=== PATIENT | male | born 1950 | race Caucasian/White ===

== ENCOUNTER 2021-07-12 06:14 | Emergency (ER) | payer MEDICARE, OTHER, SELFPAY ==
--- NOTE | ~2021-07-12 | CT_ITS ---
EXAMINATION: CT brain wo con EXAM DATE: 07/12/2021 08:00 INDICATION: Dizziness . Mild headache. TECHNIQUE: Spiral CT of the head was performed without contrast. Axial, coronal and sagittal images were reviewed. The dose-length product (DLP) for this examination was 681.00 mGy-cm. The exposure w as tailored according to patient size, and iterative reconstruction (ASIR) was used as additional dos e reduction technique. There is no prior study for comparison. FINDINGS: Large amount of subarachnoid hemorrhage filling the basilar cisterns, quadrigeminal plate c istern, prepontine cisterns and extending along the sylvian fissures and paramedian frontal subarachn oid spaces. Distribution and appearance most likely indicates rupture of an aneurysm around the circl e of [place]. I discussed this finding with Michael Terry MD at 07/12/2021 08:04 CDT. I recommende d emergent neurosurgical evaluation. There is no obstructive hydrocephalus, brain mass or extra-axia l collection. Sinuses are well aerated. IMPRESSION: Large amount of subarachnoid hemorrhage in the cisterns extending along sylvian fissures and also inferiorly. 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 Reviewed, dictated and finalized at location B. IMPRESSION: Large amount of subarachnoid hemorrhage in the cisterns extending along sylvian fissures and also inferiorly. Distribution suggests ruptured aneu rysm as most likely source.
--- NOTE | ~2021-07-12 | XR_ITS ---
EXAMINATION: XR chest 2V DATE: 07/12/2021 06:47 INDICATION: Weakness. TECHNIQUE: Frontal and lateral views of the chest were obtained. COMPARISON: None. FINDINGS: The chest demonstrates clear lungs without pneumonia, pleural effusion, or pneumothorax. Th e heart size is normal. IMPRESSION: 1. No acute cardiopulmonary disease. Reviewed, dictated and finalized at location A.
[2021-07-12 06:16] VITALS: BP 153/87; RESP 16; TEMP 36.4; O2SAT 99
--- NOTE | 2021-07-12 06:25 | ECG_ITS ---
Measurements Intervals [place] Rate: 74 P: 51 ME: 196 QRS: 1 QRSD: 108 T: 0 QT: 397 QTc: 441 Interpretive Statements SINUS RHYTHM DELAYED PRECORDIAL R/S TRANSITION OONSIDER INFERIOR INFARCT, AGE INDETERMINATE BASELINE ARTIFACT- II, III, AVR, AVF, V1, V3-V6 ABNORMAL ECG Electronically Signed On 07-12-2021 6:43:32 CDT by Declan Ly D.O.
[2021-07-12 06:44] LABS: Basophils Absolute Auto 0.1 K/mm3 (0.0-0.1); Basophils Percent Auto 0.7 % (0.2-1.2); Eosinophils Absolute Auto 0.2 K/mm3 (0-0.3); Eosinophils Percent Auto 2.4 % (0-4.4); Hematocrit 49.9 % (42.0-52.0); Hemoglobin 16.7 g/dL (14.0-18.0); Immature Granulocyte Absolute 0.03 K/mm3 (0.00-0.031); Immature Granulocyte Percent A 0.4 % (0-0.5); Lymphocytes Absolute Auto 1.54 K/mm3 (0.9-3.2); Lymphocytes Percent Auto 18.2 % (18.3-44.2); Mean Corpuscular HGB Conc 33.5 g/dl (32-36); Mean Corpuscular Hemoglobin 29.8 pg (26-34); Mean Corpuscular Volume 89.1 fl (80-100); Mean Platelet Volume 10.1 fl (7.4-10.4); Monocytes Absolute Auto 0.5 K/mm3 (0.1-0.6); Monocytes Percent Auto 5.4 % (2.6-8.5); Neutrophils Absolute Auto 6.2 K/mm3 (1.3-6.7); Neutrophils Percent Auto 72.9 % (45.5-73.1); Platelet Count Result 178 k/mm3 (150-375); Red Cell Distribution Width 12.9 % (11.5-14.5); White Blood Count 8.5 K/mm3 (4.5-10.0)
[2021-07-12 06:55] LABS: Alanine Aminotransferase 18 U/L (4-50); Albumin Level 4.2 g/dL (3.5-5.1); Alkaline Phosphatase 56 U/L (38-126); Anion Gap 11 mmol/L (8-16); Aspartate Amino Transferase 28 U/L (17-59); Bilirubin,Total 0.6 mg/dL (0.2-1.3); Blood Urea Nitrogen 27 mg/dL (9-20); Calcium 9.3 mg/dL (8.4-10.2); Carbon Dioxide 22 mmol/L (22-30); Chloride 109 mmol/L (98-107); Estimated CRCL calculation 65 ml/min; Estimated Glomerular Filt Rate > 60; Glucose 158 mg/dL (65-110); Potassium 3.8 mmol/L (3.4-5.0); Sodium 142 mmol/L (137-145)
[2021-07-12 07:27] VITALS: BP 130/91; PULSE 70; RESP 20; O2SAT 98
--- NOTE | 2021-07-12 07:45 | ED.WEAKNESS ---
HPI - Weakness General Chief complaint: Weakness <Mihcael Terry MD - Last Filed: 07/12/21 07:48> Stated complaint: headache, cant walk <Michael Terry MD - Last Filed: 07/12/21 07:48> Time Seen by Provider: 07/12/21 07:37 <Michael Terry MD - Last Filed: 07/12/21 07:48> Source: patient <Michael Terry MD - Last Filed: 07/12/21 07:48> Mode of arrival: EMS <Michael Terry MD - Last Filed: 07/12/21 07:48> Limitations: no limitations <Michael Terry MD - Last Filed: 07/12/21 07:48> History of Present Illness HPI Narrative: Patient is a 71-year-old male complaining of bilateral lower extremity weakness that started around 430 this morning and now resolved. Patient also complained of a headache, frontal dull, 6 out of 10 that also started this morning. Patient denies dizziness, speech or visual disturbance, numbness, chest pain, shortness of breath, abdominal pain, nausea, vomiting, diarrhea, urinary symptoms, fever or chills. Patient was able to get out of his wheelchair and walk to the bathroom here in the emergency room, states that he is back to his baseline strength. <Michael Terry MD - Last Filed: 07/12/21 07:48> Related Data Home medications: Home Medications Medication Instructions Recorded Confirmed bimatoprost 1 drp EACH EYE DAILY 07/12/21 bimatoprost [Lumigan] 1 drp EACH EYE DAILY 07/12/21 <Michael Terry MD - Last Filed: 07/12/21 07:48> Allergies/Adverse reactions: Allergies Allergy/AdvReac Type Severity Reaction Status Date / Time No Known Allergies Allergy Verified 07/12/21 07:29 <Michael Terry MD - Last Filed: 07/12/21 07:48> Review of Systems Review of Systems: All systems reviewed & are unremarkable except as noted in HPI and below <Michael Terry MD - Last Filed: 07/12/21 07:48> Constitutional: Constitutional: Denies body ache(s), Denies chills, Denies excessive sweating, Denies fatigue, Denies fever(s), Denies headache(s), Denies lethargy, Denies malaise and Denies weight loss <Michael Terry MD - Last Filed: 07/12/21 07:48> Eyes: Eyes: Denies blurry vision, Denies change in vision and Denies loss of vision <Michael Terry MD - Last Filed: 07/12/21 07:48> ENT: Denies dizziness, Denies ear discharge, Denies headache(s), Denies lip swelling, Denies epistaxis, Denies nasal congestion, Denies neck pain, Denies throat swelling and Denies tongue swelling <Michael Terry MD - Last Filed: 07/12/21 07:48> Cardiovascular: Cardiovascular: Denies chest pain, Denies chest pain at rest, Denies chest pain with activity, Denies diaphoresis, Denies rapid heart rate, Denies edema, Denies irregular heart rhythm, Denies lightheadedness, Denies palpitations, Denies dyspnea and Denies dyspnea on exertion <Michael Trery MD - Last Filed: 07/12/21 07:48> Respiratory: Respiratory: Denies chest congestion, Denies cough, Denies hemoptysis, Denies dyspnea and Denies dyspnea on exertion <Michael Terry MD - Last Filed: 07/12/21 07:48> Gastrointestinal: Gastrointestinal: Denies abdominal pain, Denies melena, Denies hematochezia, Denies diarrhea, Denies nausea, Denies vomiting and Denies hematemesis <Michael Terry MD - Last Filed: 07/12/21 07:48> Musculoskeletal: Musculoskeletal: Denies abnormal gait, Denies deformity, Denies joint swelling, Denies limited range of motion, Denies neck pain and Denies numbness <Michael Terry MD - Last Filed: 07/12/21 07:48> Neurologic: Denies Abnormal speech present, Denies abnormal gait, Denies confusion, Denies dizziness, Denies focal weakness, Denies loss of vision, Denies numbness, Denies Other visual disturbances and Denies Sensory deficit (Neuro) <Michael Terry MD - Last Filed: 07/12/21 07:48> Psychiatric: Psychiatric: Denies confusion, Denies depression, Denies auditory hallucinations, Denies homicidal ideation and Denies suicidal ideation <Michael Sanchez
[2021-07-12 08:08] LABS: Troponin I < 0.012 ng/mL (0.000-0.034)
[2021-07-12 08:09] VITALS: BP 130/84; PULSE 84; RESP 20; O2SAT 100
[2021-07-12] MEDS: PROMETHAZINE HCL 25 MG/ML AMPUL 12.5 MG IV PUSH (08:19)
--- NOTE | 2021-07-12 08:27 | PC.NURSE ---
0827-REPORT CALLED TO VIJAYA ARGUETA AT [facility] ER. DR. HOLLIS IS ACCEPTING ED PHYSICIAN AT [facility].
[2021-07-12 09:01] VITALS: BP 129/72; PULSE 78; RESP 14; O2SAT 98
== END 2021-07-12 09:46 | disposition short-term general hospital (02) ==
PROVIDERS: Emergency Medicine; Emergency Provider Emergency Medicine
DX: I60.9 Nontraumatic subarachnoid hemorrhage, unspecified (principal)
CPT/HCPCS: 36415; 70450; 71046; 80053; 84484; 85025; 93005; 96374; 96375; 99285; J0131; J2550

== ENCOUNTER 2025-03-09 14:54 | Emergency (ER) | payer MEDICARE, OTHER, SELFPAY ==
--- NOTE | ~2025-03-09 | CT_ITS ---
CLINICAL INDICATION: Fall, low back and hip pain. COMPARISON: None. TECHNIQUE: Computed tomography (CT) of the pelvis was performed without intravenous contrast. The dos e-length product was 843.02 mGy-cm. FINDINGS/OBSERVATIONS: Diffuse bony demineralization is identified. No acute or subacute fracture is appreciated. Significant degenerative disease is identified within the bilateral femoral acetabular joint spaces a s well as within the pubic symphysis, with sclerosis and joint space narrowing. IMPRESSION: Degenerative disease, without acute fracture, as detailed above. Reviewed, dictated and finalized at location A.
--- NOTE | ~2025-03-09 | XR_ITS ---
XR knee LT min 4V Ordering provider: Deneen Reynolds PA-C History: . left knee pain, injury . Comparison: None. FINDINGS: BONES: No acute fracture or dislocation. JOINT SPACES: Normal. Chondrocalcinosis. SOFT TISSUES: Normal. IMPRESSION: No acute osseous abnormality left knee. Chondrocalcinosis. Reviewed, dictated and finalized at location A.
--- OUTSIDE RECORDS SUMMARY | 2025-03-09 14:57 | XMS_ITS | Referral Summary ---
Author Organization [facility] Address [address] [place] [address] Care Team Providers Care Lumber Scaler Name Role Phone Alejandro Helms MD Primary Care Provider + Encounters Date Type Department Care Team Description 03/09/2025 Nurse Triage [address] [phone] Alejandro Helms MD 02/18/2025 Nurse [address] [address] Alejandro Helms MD 02/18/[address] [address] Alejandro Helms MD Appointment Request from Last 3 Months Allergies No known active allergies Medications LUMIGAN 0.01 % ophthalmic drops 7 Active aspirin 81 mg enteric coated tablet Take 1 tablet (81 mg total) by mouth daily 30 tablet 11 2 Active lisinopriL (PRINIVIL,ZESTR IL) 10 mg tablet TAKE 1 TABLET(10 MG) BY MOUTH DAILY 30 tablet 3 Active timolol (TIMOPTIC) 0.5 % ophthalmic solution Administer 1 drop into both eyes 2 (two) times a day 4 Active triamcinolone (KENALOG) 0.1 % cream Apply topically 2 (two) times a day 30 g 1 4 Active tamsulosin (FLOMAX) 0.4 mg extended release capsule Take 1 capsule (0.4 mg total) by mouth daily 100 capsule 1 4 Active Active Problems Problem Noted Date Diagnosed Date Diverticulosis of colon 11/06/2023 Screen for colon cancer 04/09/2023 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 He 'manages' but does get butterflies in stomach with this. Home readings with BP higher in the morning around 150s/90s and then when relaxed at home, systolic will get into 110s/60-70s-home machine correlating. Denies chest pain, dyspnea but has skipped beat at times, last time was months ago-reports he had discussed this in the past and was told benign EKG today with NSR, good wave progression Will check labs Will try controlling stress more right now with buspar, consider propranolol once daily in the AM if no improvement but worry more with borderline HR and with evening BP being on the lower side for now Will call in one week with symptom update and BP readings Gastroesophageal reflux disease without esophagi tis 12/18/2016 Overview (01/26/2017): GERD without esophagitis Hyperlipidemia 12/18/2016 Overview (01/26/2017): Hyperlipidemia, unspecified hyperlipidemia type Assessment & Plan (12/07/2020 8:52 AM OPERATIONS LEAD): Discussed diet and exercise today, will check labs Benign prostatic hyperplasia 12/06/2012 Overview (01/26/2017): BPH (benign prostatic hypertrophy) Assessment & Plan (12/07/2020 8:51 AM OPERATIONS LEAD): Stable off meds, will monitor Low back pain 12/06/2012 Overview (01/26/2017): Intermittent low back pain Resolved Problems Problem Noted Date Diagnosed Date Resolved Date UTI symptoms 09/06/2021 02/28/2022 BMI 35.0-35.9,adult 08/07/2018 12/11/19 19 Assessment & Plan (08/07/2018 9:24 AM CDT): BMI Follow-up includes: nutrition counseling and exercise counseling.' Early satiety 10/24/2017 02/28/2022 Assessment & Plan (10/24/2017 9:27 AM OPERATIONS LEAD): 1. Upper endoscopy Medicare annual wellness visit, subsequent 10/24/2017 09/06/2022 Assessment & Plan (12/09/2020 1:50 PM OPERATIONS LEAD): Overall doing well and scheduled for first covid vaccine today. Due for colonoscopy in 2021 Will check labs today and information on POA and living will given Assessment & Plan (10/24/2017 9:29 AM OPERATIONS LEAD): 1. FIT. I advise the patient to complete this prior to his EGD, and I explained to him that if his FIT were positive, that he should also have colonoscopy, which could be performed at the time of his EGD. 2. Next screening colonoscopy 03/2022 Heartburn 10/24/2017 12/04/2017 Assessment & Plan (10/24/2017 9:33 AM OPERATIONS LEAD): Also with symptoms of eructation and occasional nocturnal reflux. 1. EGD, as above Thoracic back pain 12/18/2016 8 Overview (01/25/2017): Thoracic back pain, unspecified back pain laterality, unspecified chronicity Hypercholesterolemia 12/06/2012 018 Overview (01/26/2017): Elevated cholesterol Borderline blood pressure 12/06/2012 Overview (01/26/2017): Borderline hypertension Achilles tendinitis 01/07/2010 04/23/20 19 Immunizations Immunization Administration Dates Next Due Influenza, Quad, Adjuvantate d, Intramuscular 08/12/2021 Influenza, Quadrivalent, Hig h Dose, Preservative Free, Intrr 07/18/2022,07/26/2020,07/16/2019,08/05 Influenza, Trivalent, High D ose, Split, Preservative Free, Intramuscular 07/16/2019,08/05/2018 Influenza, Trivalent, IM (MDV) 08/01/2018 Influenza, Unspecified 08/19/2021,2016(Deferred: Patient Refused),07/22/2016(Deferred: Patient Refused) Moderna SARS-CoV-2 Monovalen t Vaccination (12+ YRS) 09/16/2021 Pneumococcal Conjugate PCV 13 12/18/2016 Pneumococcal Polysaccharide PPV23 12/04/2017 Tdap 12/10/2013 ZOSTER LIVE 12/18/2014 ZOSTER Recombinant 05/10/2019,01/18/2019 Social History Tobacco Use Types Packs/Day Years Used Date Smoking Tobacco: Never Smokeless Tobacco: Never Tobacco Cessation:Counseling Given: Not Answered Alcohol Use Standard Drinks/Week Comments Yes 0 (1 standard drink = 0.6 oz pur e alcohol) very rare [facility] AUDIT-C Answer Date Recorded Q1: How often do you have a drink containing alc ohol? Monthly or less 11/06/2023 Q2: How many drinks containi ng alcohol do you have on a typical day when you are drinking? 1 or 2 11/06/2023 Q3: How often do you have si x or more drinks on one occasion? Never 11/06/2023 PHQ-2 Answer Date Recorded PHQ-2 Total Score (If total score is 3 or more points, staff should administer the PHQ-9) 0 03/07/2023 Personal Safety Answer Date Recorded Have you ever been in or are you currently in a harmful physical or emotional relationship or is someone making you feel afraid or unsafe? Denies 11/06/2023 Sex and Gender Information Value Date Recorded Sex Assigned at Not on file Legal Sex Male 6:57 PM OPERATIONS LEAD Gender Identity Male 08/04/2021 3:27 PM CDT Sexual Orientation Straight 08/04/2021 3: 27 PM CDT Last Filed Vital Signs Vital Sign Reading Time Taken Comments Blood Pressure 130/78 07/14/2024 11:11 AM CDT Pulse 57 07/14/2024 11:11 AM CDT Temperature 36.6 C (97.9 F) 11/06/2023 8:37 AM OPERATIONS LEAD Respiratory Rate 12 11/06/2023 10:10 AM OPERATIONS LEAD Oxygen Saturation 94% 07/14/2024 11:11 AM CDT Inhaled Oxygen Concentration - - Weight 103 kg (227 lb) 07/14/2024 11:11 AM CDT Height 172.7 cm (5' 8 ) 07/14/2024 11:11 AM CDT Body Mass Index 34.52 07/14/2024 11:11 AM CDT Plan of Treatment Not on file Procedures Procedure Name Priority Date/Time Associated Diagnosis Comments COLONOSCOPY 11/06/2023 9:10 AM OPERATIONS LEAD from Last 3 Months or Most Recently Relevant to Health Maintenance Results * COLONOSCOPY (11/06/2023 9:10 AM OPERATIONS LEAD) Anatomical Region Laterality Modality Other Narrative Procedure Note Rakan Jimenez MD - 11/06/2023 9:10 AM CST ENDOSCOPY LAB Patient Name: Alejandro Gupta Procedure Date: 11/06/2023 9:10 AM Admit Type: Outpatient Room: [facility] 2 Date of : 1950 Instrument Name: [id number] Gender: Male Note Status: Finalized Procedure: Colonoscopy Indications: Screening for colorectal malignant neoplasm, Last colonoscopy: March 2012 Providers: Rakan Jimenez M.D. Referring MD: Alejandro Helms M.D. Medicines: Propofol per Anesthesia Complications: No immediate complications. Estimated Blood Loss: Estimated blood loss: none. Procedure: Pre-Anesthesia Assessment: - The risks and benefits of the procedure and the sedation options and risks were discussed with the patient. All questions were answered and informed consent was obtained. The benefits, risks and alternatives of theprocedure and sedation were discussed and informed consentwas obtained. All questions were answered. Please referto the signed informed consent document in the medical record. The scope was passed under direct vision.The Colonoscope was introduced through the anus and advanced to the the terminal ileum, with identification of the appendiceal orifice and IC valve. The colonoscopy was performed without difficulty. The patient tolerated the procedurewell. The quality of the bowel preparation was good. The quality of the bowel preparation was evaluatedusing the BBPS (Herrin Bowel Preparation Scale) withscores of: Right Colon = 2 (minor amount of residual staining, small fragments of stool and/or opaque liquid, but mucosa seen well), Transverse Colon = 2 (minor amount of residual staining, small fragmentsof stool and/or opaque liquid, but mucosa seen well)and Left Colon = 2 (minor amount of residual staining, small fragments of stool and/or opaque liquid, but mucosa seen well). The total BBPS score equals 6.The quality of the bowel preparation was good. Thebowel preparation used was polyethylene glycol (PEG) via split dose instruction. Findings: Scattered diverticula were found in the sigmoid colon, descendingcolon and transverse colon. The exam was otherwise without abnormality on direct and retroflexion views. Impression: - Diverticulosis in the sigmoid colon, in the descending colon and in the transverse colon. - The examination was otherwise normal on directand retroflexion views. - No specimens collected. Recommendation: - Repeat colonoscopy is not recommended due tocurrent age for screening purposes. Electronically signed by Rakan Jimenez MD Rakan Jimenez M.D. 11/06/2023 9:41:37 AM This document was signed electronically. Number of Addenda: 0 Note Initiated On: 11/06/2023 9:10 AM Scope Withdrawal Time: 0 hours 9 minutes 30 seconds Scope In: 9:18:36 AM Scope Out: 9:36:05 AM Rakan Jimenez MD ENDOSCOPY PROCEDURES Final Result from Last 3 Months or Most Recently Relevant to Health Maintenance Insurance [facility] MEDICARE CIG [facility] PPO [employer] MEDICARE Advance Directives For more information, please contact: [phone] * Full Code (Latest Code Status on File) Date Activated Date Inactivated Comments 11/06/2023 8:11 AM 11/06/2023 2:29 PM Care Teams Lumber Scaler Relationship Specialty Start Date End Date Alejandro Helms MD [address] [address] PCP - General 01/19/17
--- OUTSIDE RECORDS SUMMARY | 2025-03-09 14:58 | XMS_ITS | Clinical Summary ---
Author Organization [facility] Address [address] [place] [address] Care Team Providers Care Central Service Supply Distributor Name Role Phone Alejandro Helms MD Primary Care Provider + Allergies No known active allergies Medications LUMIGAN [...] 08/07/2018 Assessment & Plan (12/09/2020 1:30 PM YARN TESTER): Stable, will continue to monitor off meds Assessment & Plan (08/07/2018 9:31 AM CDT): Will start Buspar 7.5mg BID Call in one week with update Essential hypertension 08/06/2018 Assessment & Plan (12/09/2020 1:29 PM YARN TESTER): Stable and home readings are good around [...] type Assessment & Plan (12/07/2020 8:52 AM YARN TESTER): Discussed diet and exercise today, will check labs Benign prostatic hyperplasia 12/06/2012 Overview (01/26/2017): BPH (benign prostatic hypertrophy) Assessment & Plan (12/07/2020 8:51 AM YARN TESTER): Stable off meds, will monitor Low back pain 12/06/2012 Overview (01/26/2017): Intermittent low back pain Resolved Problems Problem Noted Date Diagnosed Date Resolved Date UTI symptoms 09/06/2021 02/28/2022 BMI 35.0-35.9,adult 08/07/2018 12/11/19 19 Assessment & Plan (08/07/2018 9:24 AM CDT): BMI Follow-up includes: nutrition counseling and exercise counseling.' Early satiety 10/24/2017 02/28/2022 Assessment & Plan (10/24/2017 9:27 AM YARN TESTER): 1. Upper endoscopy Medicare annual wellness visit, subsequent 10/24/2017 09/06/2022 Assessment & Plan (12/09/2020 1:50 PM YARN TESTER): Overall doing well and scheduled for first covid vaccine today. Due for colonoscopy in 2021 Will check labs today and information on POA and living will given Assessment & Plan (10/24/2017 9:29 AM YARN TESTER): 1. FIT. I advise the patient to complete this prior to his EGD, and I explained to him that if his FIT were positive, that he should also have colonoscopy, which could be performed at the time of his EGD. 2. Next screening colonoscopy 03/2022 Heartburn 10/24/2017 12/04/2017 Assessment & Plan (10/24/2017 9:33 AM YARN TESTER): Also with symptoms of eructation and occasional nocturnal reflux. 1. EGD, as above Thoracic back pain 12/18/2016 8 Overview (01/25/2017): Thoracic back pain, unspecified back pain laterality, unspecified chronicity Hypercholesterolemia 12/06/2012 018 Overview (01/26/2017): Elevated cholesterol Borderline blood pressure 12/06/2012 Overview (01/26/2017): Borderline hypertension Achilles tendinitis 01/07/2010 04/23/20 19 Encounters Date Type Department Care Team Description 03/09/2025 Nurse Triage [facility] [address] [facility] [address] [place] [phone] Alejandro Helms MD 02/18/2025 Nurse Triage [facility] [address] [facility] [address] [place] [phone] Alejandro Helms MD 02/18/[address] [address] Alejandro Helms MD Appointment Request from Last 3 Months Immunizations Immunization Administration Dates Next Due Influenza, [...] 12/10/2013 ZOSTER LIVE 12/18/2014 ZOSTER Recombinant 05/10/2019,01/18/2019 Surgical History Surgery Date Site/Laterality Comments OTHER SURGICAL HISTORY Colonoscopy in [address] Vincent.: Due for follow up in 2010 OTHER SURGICAL HISTORY Tonsillitis: tonsillectomy Medical History Medical History Date Comments Hx Other Medical Colonoscopy in [address] Vincent. Hx Other Medical [place] Tonsillitis Tonsillitis Essential hypertension 08/06/2018 Brain aneurysm Family History Medical History Relation Name Comments Pneumonia Father Pneumonia; Other Mother Old age; Celiac disease Neg Hx Colon cancer Neg Hx Colon polyps Neg Hx Crohn's disease Neg Hx Ulcerative colitis Neg Hx Relation Name Status Comments Father Alive Mother Alive Social History Tobacco Use Types Packs/Day Years Used Date Smoking Tobacco: Never Smokeless Tobacco: Never Tobacco Cessation:Counseling Given: Not Answered Alcohol Use Standard Drinks/Week Comments Yes 0 (1 standard drink = 0.6 oz pur e alcohol) very rare [facility] AUDIT-C Answer Date Recorded Q1: How [...] on file Legal Sex Male 6:57 PM YARN TESTER Gender Identity Male 08/04/2021 3:27 PM CDT Sexual Orientation Straight 08/04/2021 3: 27 PM CDT Obstetrics History Last Filed Vital Signs Vital Sign Reading Time Taken Comments Blood Pressure 130/78 07/14/2024 11:11 AM CDT Pulse 57 07/14/2024 11:11 AM CDT Temperature 36.6 C (97.9 F) 11/06/2023 8:37 AM YARN TESTER Respiratory Rate 12 11/06/2023 10:10 AM YARN TESTER Oxygen Saturation 94% 07/14/2024 11:11 AM CDT Inhaled Oxygen Concentration - - Weight 103 kg (227 lb) 07/14/2024 11:11 AM CDT Height 172.7 cm (5' 8 ) 07/14/2024 11:11 AM CDT Body Mass Index 34.52 07/14/2024 11:11 AM CDT Plan of Treatment Health Maintenance Due Date Last Done Comments Hepatitis C Screening 1950 Hepatitis B Screening 1968 DTaP/Tdap/Td Vaccine (2 - Td or Tdap) 12/10/2023 12/10/2013 Depression Screening 03/07/2024 03/07/2023, 02/28/2022, 12/09/2020, Additional history exists Covid-19 Vaccine ( 5 season) 2024 07/18/2022, 09/16/2021, 01/10/2021, Additional history exists Fall Risk Assessment 11/06/2024 11/06/2023, 03/07/2023, 02/28/2022, Additional history exists Well Visit 65+ 03/10/2025 03/10/2024, 02/19, 02/28/2022, Additional history exists Influenza Vaccine (Season Ended) 2025 07/18/2022, 08/19/2021, 08/12/2021, Additional history exists Colon Cancer Screening-Colonoscopy 11/06/2033 11/06/2023, 04/01/2012, 04/01/2012 Pneumococcal vaccine 65+ Completed 12/04/2017, 11/23 Zoster Vaccine Completed 05/10/2019, 12/22, 12/18/2014 Colon Cancer Screening-CT Colonography Discontinued 11/06/2023, 04/01/2012, 04/01/2012 Colon Cancer Screening-DNA Stool Discontinued 11/06/2023, 04/01/2012, 04/01/2012 Colon Cancer Screening-FIT Discontinued 11/06, 04/01/2012, 04/01/2012 Colon Cancer Screening-Sigmoidoscopy Discontinued 11/06/2023, 04/01/2012, 04/01/2012 Procedures Procedure Name Priority Date/Time Associated Diagnosis Comments COLONOSCOPY 11/06/2023 9:10 AM YARN TESTER from Last 3 Months or Most Recently Relevant to Health Maintenance Results * COLONOSCOPY (11/06/2023 9:10 AM YARN TESTER) Anatomical Region Laterality Modality Other Narrative Procedure Note Rakan Jimenez MD - 11/06/2023 9:10 AM CST ENDOSCOPY LAB Patient Name: Alejandro Gupta Procedure Date: 11/06/2023 9:10 AM Admit Type: Outpatient Room: [facility] Date of : 1950 Instrument Name: -[id number] Gender: Male Note Status: Finalized Procedure: Colonoscopy [...] the bowel preparation was evaluatedusing the BBPS ([place] Bowel Preparation Scale) withscores of: Right Colon [...] In: 9:18:36 AM Scope Out: 9:36:05 AM us Rakan Jimenez MD ENDOSCOPY PROCEDURES Final Result from Last 3 Months or Most Recently Relevant to Health Maintenance Insurance [facility] MEDICARE [facility] Address: [address] [address] [place] [address] [facility] MEDICARE Advance Directives For more information, please contact: [phone] * Full Code (Latest Code Status on File) Date Activated Date Inactivated Comments 11/06/2023 8:11 AM 11/06/2023 2:29 PM Care Teams Central Service Supply Distributor Relationship Specialty Start Date End Date Alejandro Helms MD [address] [facility] [address] [place] [address] PCP - General 01/19/17
--- OUTSIDE RECORDS SUMMARY | 2025-03-09 14:58 | XMS_ITS | Encounter Summary ---
Author Organization [facility] Healthcare Address [address] [place] [address] Care Team Providers Care Back Tender Fourdrinier Name Role Phone Alejandro Helms MD Primary Care Provider + Reason for Visit * Reason Onset Date Comments Knee Pain 03/09/2025 Encounter Details Date Type Department Care Team (Late st Contact Info) Description 03/09/2025 Nurse Triage [facility] [address] [facility] [address] [place] [phone] Alejandro Helms MD [address] [address] Social History Tobacco Use Types Packs/Day Years Used Date Smoking Tobacco: Never Smokeless Tobacco: Never Alcohol Use Standard Drinks/Week Comments Yes 0 (1 standard drink = 0.6 oz pur e alcohol) very rare [facility] AUDIT-C Answer Date Recorded Q1: How often [...] on file 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 He wishes to go to the ER close to his home. He will call for followup visit. * Telephone Encounter - Farideh Gonzalez RN - 03/09/2025 1:44 PM CDT This am Pt was walking between some chairs and tripped over a cat. He fell not real hard on to alazy boy recliner edge. He hit his left knee and left hip. His left knee is bothering him the most.No swelling. Pt is not able walk on leg. He can bear weight for a min but has to take pressure off the injured leg right away. Pt unable to walk to the bathroom unassisted. Pt able to bend the knee. Pt can use his 's walker. Nothing looks deformed. Pain rated severe when standing on it. Provider contacted via secure chat for ED disposition consult. Recommendation from provider:No response/sent to ED Pt advised to be eval in ED. Pt to have his daughter drive him. Will forward to office as FYI. * Telephone Encounter - Farideh Gonzalez RN - 03/09/2025 1:41 PM CDT Regarding: Fell, sore left and hip ----- Message from Patti Agustin sent at 03/09/2025 1:41 PM CDT ----- Symptom Based Call Chief Complaint(s): Fell, sore left and hip Duration: Today What type of symptom(s) is the patient experiencing? Red Flag. Is the patient concerned they are experiencing a medical emergency requiring an ambulance? No Additional Comments: Did fall into chair but still in some pain Does message need to be routed? Yes-Action Needed documented in this encounter Plan of Treatment Not on file documented as of this encounter Visit Diagnoses Not on filedocumented in this encounter Care Teams Back Tender Fourdrinier Relationship Specialty Start Date End Date Alejandro Helms MD [address] [address] PCP - General 01/19/17 documented as of this encounter
--- OUTSIDE RECORDS SUMMARY | 2025-03-09 14:58 | XMS_ITS | Encounter Summary ---
Author Organization [facility] Healthcare Address [address] [place] [address] Care Team Providers Care Jig Worker Name Role Phone Alejandro Helms MD Primary Care Provider + Reason for Visit * Reason Onset Date Comments Appointment Request 02/18/2025 Encounter Details Date Type Department Care Team (Late st Contact Info) Description 02/18/2025 Telephone [facility] [address] [phone] Alejandro Helms MD [address] [address] Appointment Request Social History Tobacco Use Types Packs/Day Years Used Date Smoking Tobacco: Never Smokeless Tobacco: Never Alcohol Use Standard Drinks/Week Comments Yes 0 (1 standard drink = 0.6 oz pur e alcohol) very rare [facility] AUDIT-C Answer Date Recorded Q1: How often [...] on file 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 Appointment was moved to a date where he could have a physical. * Telephone Encounter - Ros Hannon - 02/18/2025 9:36 AM CDT Appointment Request What visit type does the patient need? Visit Type: Medicare AWV What is the reason for the visit? Medicare visit What is the reason we were unable to schedule the appointment? Current appointment availability didnot meet patient's need. Next availability is August. If applicable, were all members of the patient's PCP care team offered (e.g., nurse practioner(s), physician certified physical therapist assistant(s)) ? Yes Additional Comments: patient requesting to see Dr. Helms only for his medicare annual. Does message need to be routed? Yes-Action Needed documented in this encounter Plan of Treatment Not on file documented as of this encounter Visit Diagnoses Not on filedocumented in this encounter Care Teams Jig Worker Relationship Specialty Start Date End Date Alejandro Helms MD [address] [address] PCP - General 01/19/17 documented as of this encounter
--- OUTSIDE RECORDS SUMMARY | 2025-03-09 14:58 | XMS_ITS | Patient Health Record ---
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
--- OUTSIDE RECORDS SUMMARY | 2025-03-09 14:58 | XMS_ITS | Encounter Summary ---
Author Organization [facility] Address [address] [place] [address] Phone Care Team Providers Care Liquid Flavor Compounder Name Role Phone Alejandro Helms MD Primary Care Provider + Encounter Details Date Type Department Care Team (Late st Contact Info) Description 12/04/2017 Orders Only [facility] ProviderHector MD [address] [place] [address] Social History Tobacco Use Types Packs/Day Years Used Date Smoking Tobacco: Never Smokeless Tobacco: Never Alcohol Use Standard Drinks/Week Comments Yes 0 (1 standard drink = 0.6 oz pur e alcohol) very rare [place] Sex and Gender Information Value Date Recorded Sex Assigned at Not on file 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 Historical Provider LAB BLOOD ORDERABLES Supriya l Result documented in this encounter Visit Diagnoses Not on filedocumented in this encounter Care Teams Liquid Flavor Compounder Relationship Specialty Start Date End Date Alejandro Helms MD [address] [address] PCP - General 01/19/17 documented as of this encounter
--- OUTSIDE RECORDS SUMMARY | 2025-03-09 14:58 | XMS_ITS | Clinical Summary ---
Author Organization [facility] Address [address] [facility] [place] [address] Care Team Providers Care Jukebox Routeman Name Role Phone Margret Helms MD Primary Care Provider Source Comments [facility],non-owned Affiliates and Associated Physician Practices is amultiple site organization consisting of ambulatory clinics and hospital sitesin [place], [place], [place] and [place]. This disclosure is being madepursuant to the Care Everywhere program and may not contain all information available regarding this patient. Last updated 18.[facility] Allergies No known active allergies Medications * Be aware that medications may not be up to date on this document. Alwaysverify current medications with the patient. bimatoprost (LUMIGAN) 0.03 % ophthalmic solution Instill 1 (one) drop into both eyes at bedtime Active aspirin (ASPIRIN) 81 MG chew tablet Take 1 (one) tablet by mouth once daily 01/14/2022 Active lisinopril (PRINIVIL; ZESTRIL) 20 MG tablet Take 1 (one) tablet by mouth once daily 01/14/2022 Active tamsulosin (Flomax) 0.4 MG capsule 03/07/2023 Active Active Problems Problem Noted Date Diagnosed Date Ischemic stroke of frontal lobe 01/12/2022 Stage 3a chronic kidney disease 01/11/2022 Pre-op evaluation 01/10/2022 Cerebral aneurysm 12/15/2021 SAH (subarachnoid hemorrhage) 07/12/2021 Aneurysm of anterior communicating artery Agitation requiring sedation protocol Acute delirium Post-operative pain Pulmonary insufficiency Hypotension Bradycardia Urinary tract infection without hematuria Leukocytosis ANTONIO (acute kidney injury) Immunizations Immunization Administration Dates Next Due INFLUENZA VACCINE, TRIV. (AF LURIA, FLUZONE TRIVALENT; 6MO+) (IIV3) 08/01/2018 INFLUENZA VACCINE 08/19/2021,07/16/2019,08/05/20 18 INFLUENZA VACCINE, HIGH-DOSE , QUADR. (FLUZONE HIGH-DOSE QUADRIVALENT; 65Y+), 0.7 ML (HD-IIV4) 07/26/2020,07/16/2019,08/05/2018 PNEUMOCOCCAL PPSV23 12/04/2017 Pneumococcal Pcv13 Conj 12/18/2016 TDAP (7yrs+) 12/10/2013 ZOSTER VACCINE, LIVE 12/18/2014 Zoster Hzv Vacc Recombinant Inj Im 05/10/2019, Family History Relation Name Status Comments Father Mother Social History Tobacco Use Types Packs/Day Years Used Date Smoking Tobacco: Never Smokeless Tobacco: Never Alcohol Use Standard Drinks/Week Comments Not Currently 0 (1 standard drink = 0.6 oz pur e alcohol) AUDIT-C Answer Date Recorded Q1: How often do you have a drink containing alcohol? Never 03/20/2023 Q2: How many drinks containi ng alcohol do you have on a typical day when you are drinking? Patient does not drink Q3: How often do you have si x or more drinks on one occasion? Never 03/20/2023 PHQ-2 Answer Date Recorded PHQ2 TOTAL SCORE 0 07/23/2021 Sex and Gender Information Value Date Recorded Sex Assigned at Not on file Legal Sex Male 12:48 PM CDT Gender Identity Not on file Sexual Orientation Not on file Last Filed Vital Signs Vital Sign Reading Time Taken Comments Blood Pressure 109/72 03/20/2023 10:00 AM CDT Pulse 58 03/20/2023 10:00 AM CDT Temperature 37.1 C (98.8 F) 03/20/2023 9:03 AM CDT Respiratory Rate 13 03/20/2023 10:0 0 AM CDT Oxygen Saturation 95% 03/20/2023 10: 00 AM CDT Inhaled Oxygen Concentration - - Weight 102.9 kg (226 lb 12.8 oz) 03/20/2023 6:54 AM CDT Height 172.7 cm (5' 8 ) 03/20/2023 6:54 AM CDT Body Mass Index 34.48 03/20/2023 6:54 AM CDT Plan of Treatment Health Maintenance Due Date Last Done Comments COLOGUARD (AGES 45-75) - COLON CA SCREENING 1950 COLON MONITORING 1950 COLONOSCOPY - COLON CA SCREENING 1950 CT COLONOGRAPHY - COLON CA SCREENING 1950 Colorectal Cancer Screening 1950 FIT - COLON CA SCREENING 1950 FLEX SIG - COLON CA SCREENING 1950 MEDICARE AWV 12 MONTHS 1950 HEPATITIS C SCREENING 06/02/1968 DTAP/TDAP/TD VACCINES (2 - Td or Tdap) 12/10/2023 12/10/2013 COVID-19 VACCINE (3 - 2023- season) 2024 01/10/2021, 12/09/2020 DEPRESSION SCREENING 10/22/2024 Respiratory Syncytial Virus (RSV) Vaccine Pt: or over 60 yrs (1 - 1-dose 75+ series) 2025 INFLUENZA VACCINE (Season Ended) 2025 08/19/2021, 07/26/2020, 07/16/2019, Additional history exists LIPID TESTING 03/07/2028 03/07/2023 PNEUMOCOCCAL VACCINE 50+ Completed 12/04/2017, 11/23 ZOSTER VACCINE Completed 05/10/2019, 12/22, 12/18/2014 HEPATITIS B VACCINE Aged Out No longe r eligible based on patient's age to complete this topic HIB VACCINE Aged Out No longer eligi ble based on patient's age to complete this topic HPV VACCINE Aged Out No longer eligi ble based on patient's age to complete this topic MENINGOCOCCAL (Group B) VACCINE SHARED DECISION-MAKING Aged Out No longer eligible based on patient's age to complete this topic MENINGOCOCCAL GROUPS A/C/Y/W VACCINE Aged Out No longer eligible based on patient's age to complete this topic Medical Devices Implanted Type Area Bandoleer Packer Device Identifier Shelf Expiration Date Model / Serial / Lot Coil Glxy G3 15cm 5mm 12 Coil Strch Rs Implanted:Qty: 1 on 07/12/2021 at [facility] [employer]ere[employer] 11/21/2023 [id number] / / [id number] Coil Glxy G3 Xtrasoft 8cm 3mm 12 Coil Implanted:Qty: 1 on 07/12/2021 at [facility] Cerebellum [employer] [facility] [employer] 10/21/2021 [id number] / / [id number] Description: Coil Glxy G3 Xtrasoft 6cm 3mm 12 Coil Implanted:Qty: 1 on 07/12/2021 at [facility] Cerebellum [employer] 09/20/2023 [id number] / / [id number] Description: Coil Glxy G3 190cm 6cm 2mm Strch Rs Dtch Implanted:Qty: 1 on 07/12/2021 at [facility] [employer]ere[employer] [facility] [employer] 02/18/2023 [id number] 60 / / [id number] Description: Coil Glxy G3 190cm 2cm 1.5mm Strch Rs Implanted:Qty: 1 on 07/12/2021 at [facility] Cere[employer] [facility] [employer] 10/21/2021 [id number] 20 / / [id number] Description: Coil Glxy G3 190cm 4cm 2mm Strch Rs Dtch Implanted:Qty: 1 on 07/12/2021 at [facility] [employer]ere[employer] 01/19/2023 [id number] 40 / / [id number] Description: Coil Trgt Bridgette 4cm 2mm Dtch Embl 360d Implanted:Qty: 1 on 01/11/2022 at [facility] Left: Arterial [employer] 12/27/2023 [id number] / / [id number] Coil Trgt Bridgette 3cm 2mm Dtch Sft Embl 360 Implanted:Qty: 1 on 01/11/2022 at [facility] Left: Arterial [employer] 02/24/2024 [id number] 2030 / / [id number] Description:dr abreu Coil Trgt Xl 12cm 4mm Dtch Sft Embl 360d Implanted:Qty: 1 on 01/11/2022 at [facility] N/A: Arterial [employer] 09/13/2023 [id number] / / [id number] Description:Ghassan Hsu roInterventionalist Attending Stent Intrcran 3mm 21mm Nrfrm Atls Strl Implanted:Qty: 1 on 01/11/2022 at [facility] Left: Arterial [employer] 01/06/2025 [id number] / / [id number] Description:dr abreu Coil Trgt 4cm 2.5mm Dtch Ult Embl 360d Implanted:Qty: 1 on 01/11/2022 at [facility] Left: Arterial [employer] 05/14/2024 [id number] / / [id number] Description:dr abreu Explanted Type Area Bandoleer Packer Device Identifier Shelf Expiration Date Model / Serial / Lot Coil Trgt Bridgette 3cm 2mm Dtch Sft Embl 360 Explanted:Qty: 1 on 01/11/2022 at [facility] Left: Arterial [employer] 12/07/2023 [id number] / / [id number] Description:brady Insurance [facility] MEDICARE MEDICARE MEDICARE Advance Directives Documents on File Type Date Recorded Patient Project Inspector Expl anation Adv Directive/Living Will/POA 01/19/2022 7:03 AM * Full Code (Latest Code Status on File) Date Activated Date Inactivated Comments 07/12/2021 10:27 AM 07/28/2021 2:39 PM Care Teams Jukebox Routeman Relationship Specialty Start Date End Date Margret Helms MD [address] [facility] [address] [place] [address] PCP - General 12/16/21
[2025-03-09 15:14] VITALS: BP 142/88; PULSE 87; RESP 16; TEMP 36.2; O2SAT 99
--- NOTE | 2025-03-09 15:25 | ED_ITS ---
HPI - Extremity Injury (Lower) General Chief Complaint: Extremity Injury, Lower <Deneen Reynolds PA-C - Last Filed: 03/11/25 17:59> Stated Complaint: Pain left hip/knee-trip/fall <Deneen Reynolds PA-C - Last Filed: 03/11/25 17:59> Time Seen by Provider: 03/09/25 15:25 <Deneen Reynolds PA-C - Last Filed: 03/11/25 17:59> Focused HPI: This is a 74 year old male that presents to the ER for a fall this morning. Reports he tripped over a kitten. He did not hit his head or lose consciousness. Reports left hip/low back, knee pain. Reports he took Ibuprofen for pain. He is unable to bear weight due to pain. Denies decreased ROM. GENERAL: Well-appearing, well-nourished, and in no acute distress. HEAD: Normocephalic, atraumatic. CHEST: Clear to auscultation. No respiratory distress. HEART: Regular rate and rhythm. NEURO: Alert and oriented x3. Patient screened in triage and initial orders placed. Additional care and disposition to be based upon diagnostic testing and treatment. <Deneen Reynolds PA-C - Last Filed: 03/11/25 17:59> History of Present Illness HPI Narrative: I agree with the above HPI <Michael Avalos MD - Last Filed: 03/09/25 21:01> Related Data Home Medications: Home Medications Medication Instructions Recorded Confirmed Last Taken Type bimatoprost 0.01 % eye drops 1 drp EACH EYE HS 07/12/21 01/13/22 Unknown History ([place]ley) aspirin 81 mg tablet,delayed 81 mg PO DAILY 01/13/22 01/13/22 Unknown History release buspirone 5 mg tablet 5 mg PO BID 01/13/22 01/13/22 Unknown History clopidogrel 75 mg tablet 75 mg PO DAILY 01/13/22 01/13/22 Unknown History <Deneen Reynolds PA-C - Last Filed: 03/11/25 17:59> Allergies/Adverse Reactions: Allergies Allergy/AdvReac Type Severity Reaction Status Date / Time No Known Allergies Allergy Verified 03/09/25 14:56 <Deneen Reynolds PA-C - Last Filed: 03/11/25 17:59> Review of Systems Review of Systems: All systems reviewed & are unremarkable except as noted in HPI and below <Michael Avalos MD - Last Filed: 03/09/25 21:01> [facility] Past Medical History Medical History: Medical History (Updated 03/11/25 @ 17:59 by Deneen Reynolds PA-C) Aneurysm of anterior cerebral artery Hypertension <Deneen Reynolds PA-C - Last Filed: 03/11/25 17:59> Family History Family History: Family History (Updated 01/13/22 @ 13:56 by Candace Vegas RN) Other Family history non-contributory <Deneen Reynolds PA-C - Last Filed: 03/11/25 17:59> Social History Social History: Social History (Updated 01/13/22 @ 15:22 by Laura Moreira DO) Social History: lives alone in a single-level home. Prior to this was independent. From a previous CVA daughter stated for 3 weeks and patient became independent without device. Smoking status: Never smoker <Deneen Reynolds PA-C - Last Filed: 03/11/25 17:59> Exam Narrative: APPEARANCE: Well appearing, no pain, no distress, well-nourished. HEAD: normocephalic, atraumatic. EYES: PERRLA/EOMI, conjunctivae clear. NOSE: Normal no drainage EARS:TMS clear with good light reflex. THROAT: Pharynx clear, no exudate. NECK: Supple. No adenopathy, no masses. RESPIRATORY: Airway patent, respirations nonlabored. Clear to auscultation bilaterally, no rales, rhonchi, wheezing. CARDIOVASCULAR: Regular rate and rhythm without murmurs rubs or gallops. ABDOMINAL: Soft, nontender, nondistended, normal bowel sounds MUSCULOSKELETAL: Pain with range of motion of the left hip NEURO: Alert. Cranial nerves II through XII intact. Good gait. Good coordination SKIN: Warm, dry. Normal Color <Michael Avalos MD - Last Filed: 03/09/25 21:01> Course Vital Signs Vital signs: Vital Signs Temperature 97.2 F L 03/09/25 15:14 Pulse Rate 87 03/09/25 15:14 Respiratory Rate 16 03/09/25 15:14 Blood Pressure 142/88 H 03/09/25 15:14 Pulse Oximetry 99 03/09/25 15:14 Temperature 97.2 F L 03/09/25 15:14 Pulse Rate 87 03/09/25 15:14 Respiratory Rate 16 03/09/25 15:14 Blood Pressure 142/88 H 03/09/25 15:14 Pulse Oximetry 99 03/09/25 15:14 <Deneen Reynolds PA-C - Last Filed: 03/11/25 17:59> Vital Signs Temperature 97.2 F L 03/09/25 15:14 Pulse Rate 87 03/09/25 15:14 Respiratory Rate 16 03/09/25 15:14 Blood Pressure 142/88 H 03/09/25 15:14 Pulse Oximetry 99 03/09/25 15:14 Temperature 97.2 F L 03/09/25 15:14 Pulse Rate 87 03/09/25 15:14 Respiratory Rate 16 03/09/25 15:14 Blood Pressure 142/88 H 03/09/25 15:14 Pulse Oximetry 99 03/09/25 15:14 <Michael Avalos MD - Last Filed: 03/09/25 21:01> MDM - Extremity Injury (Lower) MDM Narrative Medical decision making narrative: 74-year-old male presents emergency department for evaluation for left hip pain after having a ground level fall. Pelvic CT shows no hip fracture or hip dislocation. X-ray was negative of the left knee. Patient was able to ambulate with a walker. Suspect hip contusion verses hip strain, no evidence of hip fracture dislocation. Patient family comfortable the plan for discharge and close follow-up. <Deneen Reynolds PA-C - Last Filed: 03/11/25 17:59> 74-year-old male presents emergency department for evaluation for left hip pain after having a ground level fall. Pelvic CT shows no hip fracture hip dislocation. X-ray was negative of the left knee. Patient was able to ambulate with a walker. Suspect hip contusion verses hip strain, no evidence of hip fracture dislocation. Patient family comfortable the plan for discharge and close follow-up. <Michael Avalos MD - Last Filed: 03/09/25 21:01> Differential Diagnosis Differential diagnosis: Likely other (Hip fracture, hip contusion, hip strain, knee fracture) <Michael Avalos MD - Last Filed: 03/09/25 21:01> Imaging Data Radiologist's impression: Impressions Pelvis CT 03/09/25 15:59 IMPRESSION: Degenerative disease, without acute fracture, as detailed above. Knee X-Ray 03/09/25 16:05 IMPRESSION: No acute osseous abnormality left knee. Chondrocalcinosis. <Michael Avalos MD - Last Filed: 03/09/25 21:01> Critical Care Time Critical Care Time Critical Care Time: No <Deneen Reynolds PA-C - Last Filed: 03/11/25 17:59> Discharge Plan Discharge Clinical Impression: Strain of left hip Qualifiers: Encounter type: initial encounter Qualified Code(s): S76.012A - Strain of muscle, fascia and tendon of left hip, initial encounter <Deneen Reynolds PA-C - Last Filed: 03/11/25 17:59> Patient Disposition: Home <Deneen Reynolds PA-C - Last Filed: 03/11/25 17:59> Condition: Stable <Deneen Reynolds PA-C - Last Filed: 03/11/25 17:59> Instructions: Antibiotic Form, Hip Pain (ED) <Deneen Reynolds PA-C - Last Filed: 03/11/25 17:59> Additional Instructions: Utilize a walker for limited weight-bearing. Tylenol and ibuprofen for pain control. Flexeril for muscle spasm. Have close follow-up with your primary care physician. You may need additional imaging if her symptoms are not improving. <Deneen Reynolds PA-C - Last Filed: 03/11/25 17:59> Patient Language: Uzbek <Deneen Reynolds PA-C - Last Filed: 03/11/25 17:59> Prescriptions: New cyclobenzaprine 10 mg tablet 10 mg PO BID PRN (Reason: muscle spasm) Qty: 14 0RF (DME) walker Misc See Rx Instructions .Route Qty: 1 0RF Rx Instructions: As directed No Action Lumigan 0.01 % drops 1 drp EACH EYE HS buspirone 5 mg Tablet 5 mg PO BID clopidogrel 75 mg Tablet 75 mg PO DAILY aspirin 81 mg Tablet,Delayed Release (Dr/Ec) 81 mg PO DAILY lisinopril 20 mg Tablet 20 mg PO QAM Qty: 30 0RF Rx Instructions: Please obtain refills from your family doctor <Deneen Reynolds PA-C - Last Filed: 03/11/25 17:59> Follow-up/Referrals: Ira Dunbar APRN [Advanced Practice Nurse] - <Deneen Reynolds PA-C - Last Filed: 03/11/25 17:59>
[2025-03-09] MEDS: HYDROcodone/acetaminophen (*CRX) 5-325 MG TABLET 1 TAB PO (15:38)
[2025-03-09] MEDS: IBUPROFEN 400 MG TABLET PO (15:38)
--- OUTSIDE RECORDS SUMMARY | 2025-03-09 17:50 | XMS_ITS | Referral Summary ---
Author Organization [facility] Address [address] [place] [address] Care Team Providers Care Sliver Chopper Name Role Phone Alejandro Helms MD Primary Care Provider + Encounters Date Type Department Care Team Description 03/09/2025 Nurse Triage [address] [address] Alejandro Helms MD 02/18/2025 Nurse Triage [address] [address] Alejandro Helms MD 02/18/[address] [address] Alejandro Helms MD Appointment Request [...] 08/07/2018 Assessment & Plan (12/09/2020 1:30 PM SKILLED NURSING PROFESSIONAL): Stable, will continue to monitor off meds Assessment & Plan (08/07/2018 9:31 AM CDT): Will start Buspar 7.5mg BID Call in one week with update Essential hypertension 08/06/2018 Assessment & Plan (12/09/2020 1:29 PM SKILLED NURSING PROFESSIONAL): Stable and home readings are good around [...] type Assessment & Plan (12/07/2020 8:52 AM SKILLED NURSING PROFESSIONAL): Discussed diet and exercise today, will check labs Benign prostatic hyperplasia 12/06/2012 Overview (01/26/2017): BPH (benign prostatic hypertrophy) Assessment & Plan (12/07/2020 8:51 AM SKILLED NURSING PROFESSIONAL): Stable off meds, will monitor Low back pain 12/06/2012 Overview (01/26/2017): Intermittent low back pain Resolved Problems Problem Noted Date Diagnosed Date Resolved Date UTI symptoms 09/06/2021 02/28/2022 BMI 35.0-35.9,adult 08/07/2018 12/11/19 19 Assessment & Plan (08/07/2018 9:24 AM CDT): BMI Follow-up includes: nutrition counseling and exercise counseling.' Early satiety 10/24/2017 02/28/2022 Assessment & Plan (10/24/2017 9:27 AM SKILLED NURSING PROFESSIONAL): 1. Upper endoscopy Medicare annual wellness visit, subsequent 10/24/2017 09/06/2022 Assessment & Plan (12/09/2020 1:50 PM SKILLED NURSING PROFESSIONAL): Overall doing well and scheduled for first covid vaccine today. Due for colonoscopy in 2021 Will check labs today and information on POA and living will given Assessment & Plan (10/24/2017 9:29 AM SKILLED NURSING PROFESSIONAL): 1. FIT. I advise the patient to complete this prior to his EGD, and I explained to him that if his FIT were positive, that he should also have colonoscopy, which could be performed at the time of his EGD. 2. Next screening colonoscopy 03/2022 Heartburn 10/24/2017 12/04/2017 Assessment & Plan (10/24/2017 9:33 AM SKILLED NURSING PROFESSIONAL): Also with symptoms of eructation and occasional [...] oz pur e alcohol) very rare [facility] AUDIT-C Answer Date Recorded Q1: How [...] on file Legal Sex Male 6:57 PM SKILLED NURSING PROFESSIONAL Gender Identity Male 08/04/2021 3:27 PM CDT Sexual Orientation Straight 08/04/2021 3: 27 PM CDT Last Filed Vital Signs Vital Sign Reading Time Taken Comments Blood Pressure 130/78 07/14/2024 11:11 AM CDT Pulse 57 07/14/2024 11:11 AM CDT Temperature 36.6 C (97.9 F) 11/06/2023 8:37 AM SKILLED NURSING PROFESSIONAL Respiratory Rate 12 11/06/2023 10:10 AM SKILLED NURSING PROFESSIONAL Oxygen Saturation 94% 07/14/2024 11:11 AM CDT Inhaled Oxygen Concentration - - Weight 103 kg (227 lb) 07/14/2024 11:11 AM CDT Height 172.7 cm (5' 8 ) 07/14/2024 11:11 AM CDT Body Mass Index 34.52 07/14/2024 11:11 AM CDT Plan of Treatment Not on file Procedures Procedure Name Priority Date/Time Associated Diagnosis Comments COLONOSCOPY 11/06/2023 9:10 AM SKILLED NURSING PROFESSIONAL from Last 3 Months or Most Recently Relevant to Health Maintenance Results * COLONOSCOPY (11/06/2023 9:10 AM SKILLED NURSING PROFESSIONAL) Anatomical Region Laterality Modality Other Narrative Procedure Note Rakan Jimenez MD - 11/06/2023 9:10 AM CST ENDOSCOPY LAB Patient Name: Alejandro Gupta Procedure Date: 11/06/2023 9:10 AM Admit Type: Outpatient Room: [facility] 2 Date of : 1950 Instrument Name: [...] the bowel preparation was evaluatedusing the BBPS ([place] Bowel Preparation Scale) withscores of: Right Colon [...] Most Recently Relevant to Health Maintenance Insurance [facility] MEDICARE [facility] Address: [address] [address] [place] [address] CIG FOR[facility]LY [facility] PPO [employer] MEDICARE Advance Directives For more information, please contact: [phone] * Full Code (Latest Code Status on File) Date Activated Date Inactivated Comments 11/06/2023 8:11 AM 11/06/2023 2:29 PM Care Teams Sliver Chopper Relationship Specialty Start Date End Date Alejandro Helms MD [address] [address] PCP - General 01/19/17
--- OUTSIDE RECORDS SUMMARY | 2025-03-09 17:50 | XMS_ITS | Clinical Summary ---
Author Organization [facility] Address [address] [place] [address] Care Team Providers Care Shingle Bolt Cutter Name Role Phone Alejandro Helms MD Primary [...] 08/07/2018 Assessment & Plan (12/09/2020 1:30 PM ROOFING FOREMAN): Stable, will continue to monitor off meds Assessment & Plan (08/07/2018 9:31 AM CDT): Will start Buspar 7.5mg BID Call in one week with update Essential hypertension 08/06/2018 Assessment & Plan (12/09/2020 1:29 PM ROOFING FOREMAN): Stable and home readings are good around [...] type Assessment & Plan (12/07/2020 8:52 AM ROOFING FOREMAN): Discussed diet and exercise today, will check labs Benign prostatic hyperplasia 12/06/2012 Overview (01/26/2017): BPH (benign prostatic hypertrophy) Assessment & Plan (12/07/2020 8:51 AM ROOFING FOREMAN): Stable off meds, will monitor Low back pain 12/06/2012 Overview (01/26/2017): Intermittent low back pain Resolved Problems Problem Noted Date Diagnosed Date Resolved Date UTI symptoms 09/06/2021 02/28/2022 BMI 35.0-35.9,adult 08/07/2018 12/11/19 19 Assessment & Plan (08/07/2018 9:24 AM CDT): BMI Follow-up includes: nutrition counseling and exercise counseling.' Early satiety 10/24/2017 02/28/2022 Assessment & Plan (10/24/2017 9:27 AM ROOFING FOREMAN): 1. Upper endoscopy Medicare annual wellness visit, subsequent 10/24/2017 09/06/2022 Assessment & Plan (12/09/2020 1:50 PM ROOFING FOREMAN): Overall doing well and scheduled for first covid vaccine today. Due for colonoscopy in 2021 Will check labs today and information on POA and living will given Assessment & Plan (10/24/2017 9:29 AM ROOFING FOREMAN): 1. FIT. I advise the patient to complete this prior to his EGD, and I explained to him that if his FIT were positive, that he should also have colonoscopy, which could be performed at the time of his EGD. 2. Next screening colonoscopy 03/2022 Heartburn 10/24/2017 12/04/2017 Assessment & Plan (10/24/2017 9:33 AM ROOFING FOREMAN): Also with symptoms of eructation and occasional nocturnal reflux. 1. EGD, as above Thoracic back pain 12/18/2016 8 Overview (01/25/2017): Thoracic back pain, unspecified back pain laterality, unspecified chronicity Hypercholesterolemia 12/06/2012 018 Overview (01/26/2017): Elevated cholesterol Borderline blood pressure 12/06/2012 Overview (01/26/2017): Borderline hypertension Achilles tendinitis 01/07/2010 04/23/20 19 Encounters Date Type Department Care Team Description 03/09/2025 Nurse Triage [facility] [address] [place] [phone] Alejandro Helms MD 02/18/2025 Nurse Triage [facility] [address] [place] [phone] Alejandro Helms MD 02/18/[address] [address] Alejandro Helms MD Appointment Request [...] 0.6 oz pur e alcohol) very rare [facility] AUDIT-C Answer Date Recorded Q1: How [...] on file Legal Sex Male 6:57 PM ROOFING FOREMAN Gender Identity Male 08/04/2021 3:27 PM CDT Sexual Orientation Straight 08/04/2021 3: 27 PM CDT Obstetrics History Last Filed Vital Signs Vital Sign Reading Time Taken Comments Blood Pressure 130/78 07/14/2024 11:11 AM CDT Pulse 57 07/14/2024 11:11 AM CDT Temperature 36.6 C (97.9 F) 11/06/2023 8:37 AM ROOFING FOREMAN Respiratory Rate 12 11/06/2023 10:10 AM ROOFING FOREMAN Oxygen Saturation 94% 07/14/2024 11:11 AM CDT [...] Associated Diagnosis Comments COLONOSCOPY 11/06/2023 9:10 AM ROOFING FOREMAN from Last 3 Months or Most Recently Relevant to Health Maintenance Results * COLONOSCOPY (11/06/2023 9:10 AM ROOFING FOREMAN) Anatomical Region Laterality Modality Other Narrative Procedure Note Rakan Jimenez MD - 11/06/2023 9:10 AM CST ENDOSCOPY LAB Patient Name: Alejandro Gupta Procedure Date: 11/06/2023 9:10 AM Admit Type: Outpatient Room: [facility] Date of : 1950 Instrument Name: -[id number] [...] the bowel preparation was evaluatedusing the BBPS ([place] Bowel Preparation Scale) withscores of: Right Colon [...] Most Recently Relevant to Health Maintenance Insurance [facility] MEDICARE [facility] MEDICARE Advance Directives For more information, please contact: [phone] * Full Code (Latest Code Status on File) Date Activated Date Inactivated Comments 11/06/2023 8:11 AM 11/06/2023 2:29 PM Care Teams Shingle Bolt Cutter Relationship Specialty Start Date End Date Alejandro Helms MD [address] [facility] [address] [place] [address] PCP - General 01/19/17
--- OUTSIDE RECORDS SUMMARY | 2025-03-09 17:50 | XMS_ITS | Encounter Summary ---
Author Organization [facility] Healthcare Address [address] [place] [address] Care Team Providers Care Land Lease Information Clerk Name Role Phone Alejandro Helms MD Primary Care Provider + Reason for Visit * Reason Onset Date Comments Appointment Request 02/18/2025 Encounter Details Date Type Department Care Team (Late st Contact Info) Description 02/18/2025 Telephone [facility] [address] [phone] Alejandro Helms MD [address] [address] Appointment Request Social History Tobacco Use Types Packs/Day Years Used Date Smoking Tobacco: Never Smokeless Tobacco: Never Alcohol Use Standard Drinks/Week Comments Yes 0 (1 standard drink = 0.6 oz pur e alcohol) very rare [facility] AUDIT-C Answer Date Recorded Q1: How often [...] on file Legal Sex Male 6:57 PM DESKTOP SPECIALIST Gender Identity Male 08/04/2021 3:27 PM CDT [...] care team offered (e.g., nurse practioner(s), physician manufacturing assistant(s)) ? Yes Additional Comments: patient requesting to see Dr. Helms only for his medicare annual. Does message need to be routed? Yes-Action Needed documented in this encounter Plan of Treatment Not on file documented as of this encounter Visit Diagnoses Not on filedocumented in this encounter Care Teams Land Lease Information Clerk Relationship Specialty Start Date End Date Alejandro Helms MD [address] [address] PCP - General 01/19/17 documented as of this encounter
--- OUTSIDE RECORDS SUMMARY | 2025-03-09 17:50 | XMS_ITS | Clinical Summary ---
Author Organization [facility] Address [address] [place] [address] Care Team Providers Care Hitch Technician Name Role Phone Margret Helms MD Primary Care Provider [phone] Source Comments [facility],non-owned Affiliates and Associated Physician Practices is amultiple site organization consisting of ambulatory clinics and hospital sitesin [place], [place], [place] and [place]. This disclosure is being madepursuant to the Care Everywhere program and may not contain all information available regarding this patient. Last updated 18.[facility] Allergies No known active allergies Medications * [...] this topic Medical Devices Implanted Type Area Brickmason Apprentice Device Identifier Shelf Expiration Date Model / Serial / Lot Coil Glxy G3 15cm 5mm 12 Coil Strch Rs Implanted:Qty: 1 on 07/12/2021 at [facility] [employer] 11/21/2023 [id number] 15 / / [id number] Coil Glxy G3 Xtrasoft 8cm 3mm 12 Coil Implanted:Qty: 1 on 07/12/2021 at [facility] [employer] [facility] [employer] 10/21/2021 [id number] 08 / / [id number] Description: Coil Glxy G3 Xtrasoft 6cm 3mm 12 Coil Implanted:Qty: 1 on 07/12/2021 at [facility] [employer] 09/20/2023 [id number] 06 / / [id number] Description: Coil Glxy G3 190cm 6cm 2mm Strch Rs Dtch Implanted:Qty: 1 on 07/12/2021 at [facility] [employer] [facility] [employer] 02/18/2023 [id number] 60 / / [id number] Description: Coil Glxy G3 190cm 2cm 1.5mm Strch Rs Implanted:Qty: 1 on 07/12/2021 at [facility] [employer] [facility] [employer] 10/21/2021 [id number] 20 / / [id number] Description: Coil Glxy G3 190cm 4cm 2mm Strch Rs Dtch Implanted:Qty: 1 on 07/12/2021 at [facility] [employer] 01/19/2023 [id number] 40 / / [id number] Description: Coil Trgt Bridgette 4cm 2mm Dtch Embl 360d Implanted:Qty: 1 on 01/11/2022 at [facility] Left: Arterial [employer] 12/27/2023 [id number] / / [id number] Coil Trgt Bridgette 3cm 2mm Dtch Sft Embl 360 Implanted:Qty: 1 on 01/11/2022 at [facility] Left: Arterial [employer] 02/24/2024 [id number] 2030 / / [id number] Description:dr abreu Coil Trgt Xl 12cm 4mm Dtch Sft Embl 360d Implanted:Qty: 1 on 01/11/2022 at [facility] N/A: Arterial [employer] 09/13/2023 [id number] / / [id number] Description:Ghassan Hsu roInterventionalist Attending Stent Intrcran 3mm 21mm Nrfrm Atls Strl Implanted:Qty: 1 on 01/11/2022 at [facility] Left: Arterial Ann [employer] 01/06/2025 [id number] / / [id number] Description:dr abreu Coil Trgt 4cm 2.5mm Dtch Ult Embl 360d Implanted:Qty: 1 on 01/11/2022 at [facility] Left: Arterial [employer] 05/14/2024 [id number] 2540 / / [id number] Description:dr abreu Explanted Type Area Brickmason Apprentice Device Identifier Shelf Expiration Date Model / Serial / Lot Coil Trgt Bridgette 3cm 2mm Dtch Sft Embl 360 Explanted:Qty: 1 on 01/11/2022 at [facility] Left: Arterial Ann [employer] 12/07/2023 [id number] / / [id number] Description:brady Insurance [facility] MEDICARE MEDICARE MEDICARE Advance Directives Documents on File Type Date Recorded Patient Systems Testing Laboratory Technician Expl anation Adv Directive/Living Will/POA 01/19/2022 7:03 AM * Full Code (Latest Code Status on File) Date Activated Date Inactivated Comments 07/12/2021 10:27 AM 07/28/2021 2:39 PM Care Teams Hitch Technician Relationship Specialty Start Date End Date Margret Helms MD [address] [facility] [address] [place] [address] PCP - General 12/16/21
--- OUTSIDE RECORDS SUMMARY | 2025-03-09 17:50 | XMS_ITS | Encounter Summary ---
Author Organization [facility] Healthcare Address [address] [place] [address] Care Team Providers Care Nc Machinist Name Role Phone Alejandro Helms MD Primary Care Provider + Reason for Visit * Reason Onset Date Comments Knee Pain 03/09/2025 Encounter Details Date Type Department Care Team (Late st Contact Info) Description 03/09/2025 Nurse Triage [facility] [address] [facility] [address] [place] [phone] Alejandro Helms MD [address] [address] Social History Tobacco Use Types Packs/Day Years Used Date Smoking Tobacco: Never Smokeless Tobacco: Never Alcohol Use Standard Drinks/Week Comments Yes 0 (1 standard drink = 0.6 oz pur e alcohol) very rare [facility] AUDIT-C Answer Date Recorded Q1: How often [...] on file Legal Sex Male 6:57 PM BUILDING SERVICES COORDINATOR Gender Identity Male 08/04/2021 3:27 PM CDT [...] on filedocumented in this encounter Care Teams Nc Machinist Relationship Specialty Start Date End Date Alejandro Helms MD [address] [address] PCP - General 01/19/17 documented as of this encounter
--- OUTSIDE RECORDS SUMMARY | 2025-03-09 17:50 | XMS_ITS | Encounter Summary ---
Author Organization [facility] Address [address] [place] [address] Phone Care Team Providers Care Glass Embosser Name Role Phone Alejandro Helms MD Primary Care Provider + Encounter Details Date Type Department Care Team (Late st Contact Info) Description 12/04/2017 [facility] Only [facility] ProviderHector MD [address] [place] [id number] Social History Tobacco Use Types Packs/Day Years Used Date Smoking Tobacco: Never Smokeless Tobacco: Never Alcohol Use Standard Drinks/Week Comments Yes 0 (1 standard drink = 0.6 oz pur e alcohol) very rare Scotch Sex and Gender Information Value Date Recorded Sex Assigned at Not on file Legal Sex Male 6:57 PM HAIR SPINNING MACHINE OPERATOR Gender Identity Male 08/04/2021 3:27 PM CDT Sexual Orientation Straight 08/04/2021 3: 27 PM CDT documented as of this encounter Plan of Treatment Not on file documented as of this encounter Procedures Procedure Name Priority Date/Time Associated Diagnosis Comments DISCHARGE LABORATORY CUMULATIVE REPORT 12/04/2017 12:00 AM HAIR SPINNING MACHINE OPERATOR documented in this encounter Results * DISCHARGE LABORATORY CUMULATIVE REPORT (12/04/2017 12:00 AM HAIR SPINNING MACHINE OPERATOR) Narrative 12/04/2017 12:00 AM HAIR SPINNING MACHINE OPERATOR Ordered by an unspecified provider. Historical Provider LAB BLOOD ORDERABLES Supriya l Result documented in this encounter Visit Diagnoses Not on filedocumented in this encounter Care Teams Glass Embosser Relationship Specialty Start Date End Date Alejandro Helms MD [address] [address] PCP - General 01/19/17 documented as of this encounter
[2025-03-09] MEDS: CYCLOBENZAPRINE HCL 10 MG TABLET PO (18:17)
== END 2025-03-09 18:34 | disposition home or self-care (01) ==
PROVIDERS: Emergency Provider Emergency Medicine
DX: S76.012A Strain of muscle, fascia and tendon of left hip, initial encounter (principal); I10 Essential (primary) hypertension; W01.0XXA Fall on same level from slipping, tripping and stumbling without subsequent striking against object, initial encounter
CPT/HCPCS: 72192; 73564; 99284; A9270